=== PATIENT | male | born 1945 | race Caucasian/White ===

== ENCOUNTER 2019-12-27 16:20 | Emergency (ER) | payer MEDICARE, BC ==
[2019-12-27 16:38] VITALS: BP 107/91; PULSE 81
[2019-12-27] MEDS ORDERED: Sodium Chloride 0.9% 10 ML Syringe FLUSH PRN (17:05)
[2019-12-27] MEDS ORDERED: Ondansetron 4 MG/2 ML SDV IVPUSH ONE (17:05)
[2019-12-27] MEDS ORDERED: Dextrose 5%-Lactated Ringers 1,000 ML IV SCH (17:15)
--- NOTE | 2019-12-27 17:49 | EDM.PDOC ---
ED HPI GENERAL MEDICAL PROBLEM - General Chief Complaint: Fever Stated Complaint: [facility] Time Seen by Provider: 12/27/19 16:30 Source of Information: Reports: Patient, RN Notes Reviewed - History of Present Illness INITIAL COMMENTS - FREE TEXT/NARRATIVE: 74 yr old male became ill 2 1/2 days ago with chills, fever, nausea, myalgias, diarrhea that all continues today. No cough, sore throat, nasal don. or dyspnea. Has not been out much in the public but has not been wearing a mask up until the last 2 to 3 days. Hx of prior appendectomy. Generalized Pain Score (Numeric/FACES): 10 - Related Data Allergies Allergy/AdvReac Type Severity Reaction Status Date / Time No Known Allergies Allergy Verified 12/27/19 16:26 Home Meds: Home Meds Aspirin [Adult Low Dose Aspirin EC] 81 mg PO DAILY 12/04/14 [History] Metoclopramide [Reglan] 10 mg PO TID 12/04/14 [History] Metoprolol Tartrate 50 mg PO BID 12/04/14 [History] Pravastatin [Pravachol] 10 mg PO DAILY 12/04/14 [History] Tamsulosin [Flomax] 0.4 mg PO DAILY 12/04/14 [History] Venlafaxine HCl [Venlafaxine HCl ER] 150 mg PO DAILY 12/04/14 [History] amLODIPine [Norvasc] 10 mg PO DAILY 12/04/14 [History] Morphine [MS Contin] 30 mg PO TID 12/27/19 [History] Ondansetron [Zofran ODT] 4 mg PO Q8HR PRN #7 tab.dis 12/27/19 [Rx] Past Medical History HEENT History: Reports: Impaired Vision Cardiovascular History: Reports: Hypertension Respiratory History: Reports: None Other Respiratory History: shortness of breath since Wednesday Gastrointestinal History: Reports: GERD Genitourinary History: Reports: None Musculoskeletal History: Reports: Other (See Below) Other Musculoskeletal History: chronic myofascial pain - hx thoracic compression FX - Bilateral chronic leg weakness. States has been on pain medications for years, for generalized pain from head to toe. Neurological History: Reports: None Other Neuro History: chronic pain patient Psychiatric History: Reports: Depression Endocrine/Metabolic History: Reports: None Hematologic History: Reports: None Immunologic History: Reports: None Oncologic (Cancer) History: Reports: None Dermatologic History: Reports: None - Infectious Disease History Infectious Disease History: Reports: None - Past Surgical History Head Surgeries/Procedures: Reports: None HEENT Surgical History: Reports: Adenoidectomy, Tonsillectomy Male Surgical History: Reports: None Endocrine Surgical History: Reports: None Social & Family History - Family History Family Medical History: Noncontributory - Tobacco Use Smoking Status *Q: Current Every Day Smoker Years of Tobacco use: 50 Packs/Tins Daily: 1 - Caffeine Use Caffeine Use: Reports: Coffee - Recreational Drug Use Recreational Drug Use: No ED ROS GENERAL - Review of Systems Review Of Systems: See Below Constitutional: Reports: Fever, Chills. Denies: Diaphoresis HEENT: Denies: Rhinitis, Throat Pain Respiratory: Denies: Shortness of Breath, Cough Cardiovascular: Denies: Chest Pain Endocrine: Reports: Fatigue GI/Abdominal: Reports: Abdominal Pain, Diarrhea, Nausea. Denies: Vomiting Musculoskeletal: Reports: Other (generalized achiness) Neurological: Reports: Dizziness. Denies: Headache, Trouble Speaking, Difficulty Walking ED EXAM, GI/ABD - Physical Exam Exam: See Below General Appearance: Alert, Mild Distress Head: Atraumatic Neck: Supple Respiratory/Chest: No Respiratory Distress, Lungs Clear, Normal Breath Sounds Cardiovascular: Regular Rate, Rhythm GI/Abdominal Exam: Tender (mild diffuse tenderness) Extremities: Normal Inspection, Normal Range of Motion Neurological: Alert, Oriented, No Motor/Sensory Deficits Course - Vital Signs Last Recorded V/S: Last Vital Signs Temp 99.2 F 12/27/19 16:34 Pulse 81 12/27/19 16:34 Resp 20 12/27/19 16:34 BP 107/91 H 12/27/19 16:34 Pulse Ox 100 12/27/19 16:34 - Orders/Labs/Meds Orders: Active Orders 24 hr Category Date Time Status Peripheral IV Care [RC] . DIRECTED Care 12/27/19 17:06 Active Dextrose 5%-Lactated Ringers 1,000 ml Med 12/27/19 17:15 Active IV ASDIRECTED Sodium Chloride 0.9% [Saline Flush] Med 12/27/19 17:05 Active 10 ml FLUSH ASDIRECTED PRN Peripheral IV Insertion Adult [OM.PC] Stat Oth 12/27/19 17:05 Ordered Medication Orders Dextrose/Lactated Ringer's (Dextrose 5%-Lactated Ringers) 1,000 mls @ 125 mls/hr IV ASDIRECTED BRYANNA Last Admin: 12/27/19 17:19 Dose: 125 mls/hr Documented by: YVES Sodium Chloride (Saline Flush) 10 ml FLUSH ASDIRECTED PRN PRN Reason: Keep Vein Open Last Admin: 12/27/19 17:19 Dose: 10 ml Documented by: YVES Labs: Laboratory Tests 12/27/19 12/27/19 12/27/19 Range/Units 17:15 17:15 17:15 WBC 7.78 (4.23-9.07) K/mm3 RBC 4.08 L (4.63-6.08) M/mm3 Hgb 13.1 L (13.7-17.5) gm/dl Hct 38.5 L (40.1-51.0) % MCV 94.4 H (79.0-92.2) fl MCH 32.1 (25.7-32.2) pg MCHC 34.0 (32.2-35.5) g/dl RDW Std Deviation 45.8 H (35.1-43.9) fL Plt Count 238 (163-337) K/mm3 MPV 9.6 (9.4-12.3) fl Neut % (Auto) 66.6 (34.0-67.9) % Lymph % (Auto) 25.4 (21.8-53.1) % [place] % (Auto) 7.7 (5.3-12.2) % Eos % (Auto) 0.1 L (0.8-7.0) Baso % (Auto) 0.1 (0.1-1.2) % Neut # (Auto) 5.17 (1.78-5.38) K/mm3 Lymph # (Auto) 1.98 (1.32-3.57) K/mm3 [place] # (Auto) 0.60 (0.30-0.82) K/mm3 Eos # (Auto) 0.01 L (0.04-0.54) K/mm3 Baso # (Auto) 0.01 (0.01-0.08) K/mm3 D-Dimer, Quantitative (0.19-0.50) mg/L Sodium 144 (136-145) mEq/L Potassium 3.0 L (3.5-5.1) mEq/L Chloride 107 (98-107) mEq/L Carbon Dioxide 25 (21-32) mEq/L Anion Gap 15.0 (5-15) BUN 27 H (7-18) mg/dL Creatinine 1.1 (0.7-1.3) mg/dL Est Cr Clr Drug Dosing 57.56 mL/min Estimated GFR (MDRD) > 60 (>60) mL/min BUN/Creatinine Ratio 24.5 H (14-18) Glucose 106 (83-115) mg/dL Calcium 8.8 (8.5-10.1) mg/dL Ferritin (26-388) ng/ml Total Bilirubin 0.5 (0.2-1.0) mg/dL AST 61 H (15-37) U/L ALT 115 H (16-63) U/L Alkaline Phosphatase 131 H (46-116) U/L C-Reactive Protein 0.9 (<1.0) mg/dL Total Protein 6.6 (6.4-8.2) g/dl Albumin 3.2 L (3.4-5.0) g/dl Globulin 3.4 gm/dL Albumin/Globulin Ratio 0.9 L (1-2) SARS Virus RNA (PCR) (NEGATIVE) 12/27/19 12/27/19 12/27/19 Range/Units 17:15 17:15 17:20 WBC (4.23-9.07) K/mm3 RBC (4.63-6.08) M/mm3 Hgb (13.7-17.5) gm/dl Hct (40.1-51.0) % MCV (79.0-92.2) fl MCH (25.7-32.2) pg MCHC (32.2-35.5) g/dl RDW Std Deviation (35.1-43.9) fL Plt Count (163-337) K/mm3 MPV (9.4-12.3) fl Neut % (Auto) (34.0-67.9) % Lymph % (Auto) (21.8-53.1) % [place] % (Auto) (5.3-12.2) % Eos % (Auto) (0.8-7.0) Baso % (Auto) (0.1-1.2) % Neut # (Auto) (1.78-5.38) K/mm3 Lymph # (Auto) (1.32-3.57) K/mm3 [place] # (Auto) (0.30-0.82) K/mm3 Eos # (Auto) (0.04-0.54) K/mm3 Baso # (Auto) (0.01-0.08) K/mm3 D-Dimer, Quantitative 0.56 H (0.19-0.50) mg/L Sodium (136-145) mEq/L Potassium (3.5-5.1) mEq/L Chloride (98-107) mEq/L Carbon Dioxide (21-32) mEq/L Anion Gap (5-15) BUN (7-18) mg/dL Creatinine (0.7-1.3) mg/dL Est Cr Clr Drug Dosing mL/min Estimated GFR (MDRD) (>60) mL/min BUN/Creatinine Ratio (14-18) Glucose (83-115) mg/dL Calcium (8.5-10.1) mg/dL Ferritin 161 (26-388) ng/ml Total Bilirubin (0.2-1.0) mg/dL AST (15-37) U/L ALT (16-63) U/L Alkaline Phosphatase (46-116) U/L C-Reactive Protein (<1.0) mg/dL Total Protein (6.4-8.2) g/dl Albumin (3.4-5.0) g/dl Globulin gm/dL Albumin/Globulin Ratio (1-2) SARS Virus RNA (PCR) Negative (NEGATIVE) Meds: Medications Generic Name Dose Route Start Last Admin Trade Name Freq PRN Reason Stop Dose Admin Dextrose/Lactated Ringer's 1,000 mls @ 125 mls/hr 12/27/19 17:15 12/27/19 17:19 Dextrose 5%-Lactated Ringers IV 125 mls/hr ASDIRECTED BRYANNA Administration Sodium Chloride 10 ml 12/27/19 17:05 12/27/19 17:19 Saline Flush FLUSH 10 ml ASDIRECTED PRN Administration Keep Vein Open Discontinued Medications Generic Name Dose Route Start Last Admin Trade Name Freq PRN Reason Stop Dose Admin Ondansetron HCl 4 mg 12/27/19 17:05 12/27/19 17:19 Zofran IVPUSH 12/27/19 17:06 4 mg ONETIME ONE Administration - Re-Assessments/Exams Free Text/Narrative Re-Assessment/Exam: 12/27/19. 12/27/19 20:25. covid screen neg., CXR nl. other labs relatively nl. Feels better after IV fluid and zofran. Discharge instr. as documented. Departure - Departure Time of Disposition: 19:21 Disposition: Home, Self-Care 01 Condition: Fair Clinical Impression: Vomiting, Diarrhea, Abdominal pain - Discharge Information Prescriptions: Ondansetron [Zofran ODT] 4 mg PO Q8HR PRN #7 tab.dis PRN Reason: Nausea/Vomiting Instructions: Nausea and Vomiting, Adult, [id number], Abdominal Pain, Adult, [id number], Diarrhea, Adult, [id number] Referrals: PCP,None [Ordering Only Provider] - Forms: ED Department Discharge Additional Instructions: rest, clear liquids until noon tomorrow, than very careful bland diet as tolerated. Follow up clinic if not much better by Wednesday. Return to ED as needed if symptoms worsening in any way. Sepsis Event Note (ED) - Evaluation Sepsis Screening Result: No Definite Risk - Focused Exam Vital Signs: Vital Signs Temp Pulse Resp BP Pulse Ox 12/27/19 16:34 99.2 F 81 20 107/91 H 100 - My Orders Last 24 Hours: My Active Orders 12/27/19 17:05 Sodium Chloride 0.9% [Saline Flush] 10 ml FLUSH ASDIRECTED PRN Peripheral IV Insertion Adult [OM.PC] Stat 12/27/19 17:06 Peripheral IV Care [RC] . DIRECTED 12/27/19 17:15 Dextrose 5%-Lactated Ringers 1,000 ml IV ASDIRECTED - Assessment/Plan Last 24 Hours: My Active Orders 12/27/19 17:05 Sodium Chloride 0.9% [Saline Flush] 10 ml FLUSH ASDIRECTED PRN Peripheral IV Insertion Adult [OM.PC] Stat 12/27/19 17:06 Peripheral IV Care [RC] . DIRECTED 12/27/19 17:15 Dextrose 5%-Lactated Ringers 1,000 ml IV ASDIRECTED
--- NOTE | 2019-12-27 17:59 | CR ---
Chest: Upright view of the chest was obtained. Comparison: Prior chest x-ray of 09/23/18. Heart size is normal. Tortuous thoracic aorta is seen. Lungs are clear with no acute parenchymal change. Bony structures show nothing acute. Impression: 1. Nothing acute is appreciated on frontal chest x-ray. Diagnostic code #1 Study was dictated in MDT
== END 2019-12-27 19:47 | disposition home or self-care (01) ==
LOC: JD.ED 16:20
DX: R11.2 Nausea with vomiting, unspecified (principal); R19.7 Diarrhea, unspecified; R10.84 Generalized abdominal pain; Z20.828 Contact with and (suspected) exposure to other viral communicable diseases; F17.210 Nicotine dependence, cigarettes, uncomplicated; Z79.82 Long term (current) use of aspirin; Z79.899 Other long term (current) drug therapy
CPT/HCPCS: 36415; 71045; 80053; 82728; 85025; 85379; 86140; 96361; 96374; 99284; J2405; J7121; U0002; 99283

== ENCOUNTER 2021-03-11 07:02 | Day surgery (SDC) | payer MEDICARE, BC ==
--- NOTE | 2021-02-10 07:16 | PCM.PREANE ---
Preanesthetic Assessment - Anesthesia/Transfusion/Family Hx Anesthesia History: Prior Anesthesia Without Reaction Family History of Anesthesia Reaction: No Transfusion History: Prior Transfusion Without Reaction - Review of Systems General: No Symptoms Pulmonary: No Symptoms Cardiovascular: Other (> 4 mets) Gastrointestinal: No Symptoms, Other (denies gerd) Neurological: No Symptoms Other: Reports: None - Physical Assessment NPO Status Date: 02/09/21 NPO Status Time: 21:00 Weight: 64.2 kg ASA Class: 2 Mental Status: Alert & Oriented x3 Dentition: Reports: Normal Dentition, Partial (2 partials, pt states that they are tight) Thyro-Mental Finger Breadths: 3 Mouth Opening Finger Breadths: 3 ROM/Head Extension: Full Lungs: Clear to Auscultation, Normal Respiratory Effort Cardiovascular: Regular Rate, Regular Rhythm - Allergies Allergies/Adverse Reactions: Allergies Allergy/AdvReac Type Severity Reaction Status Date / Time No Known Allergies Allergy Verified 12/27/19 16:26 - Blood Blood Available: No Product(s) Available: None - Anesthesia Plan Pre-Op Medication Ordered: None Beta Yazmin: Metoprolol Med Last Dose Date: 02/10/21 Med Last Dose Time: 04:00 - Acknowledgements Anesthesia Type Planned: Spinal Pt an Appropriate Candidate for the Planned Anesthesia: Yes Alternatives and Risks of Anesthesia Discussed w Pt/Guardian: Yes Pt/Guardian Understands and Agrees with Anesthesia Plan: Yes PreAnesthesia Questionnaire HEENT History: Reports: Impaired Vision Cardiovascular History: Reports: Hypertension Respiratory History: Reports: None Other Respiratory History: shortness of breath since Wednesday Gastrointestinal History: Reports: GERD Genitourinary History: Reports: None Musculoskeletal History: Reports: Other (See Below) Other Musculoskeletal History: chronic myofascial pain - hx thoracic compression FX - Bilateral chronic leg weakness. States has been on pain medications for years, for generalized pain from head to toe. Neurological History: Reports: None Other Neuro History: chronic pain patient Psychiatric History: Reports: Depression Endocrine/Metabolic History: Reports: None Hematologic History: Reports: None Immunologic History: Reports: None Oncologic (Cancer) History: Reports: None Dermatologic History: Reports: None - Infectious Disease History Infectious Disease History: Reports: None - Past Surgical History Head Surgeries/Procedures: Reports: None HEENT Surgical History: Reports: Adenoidectomy, Tonsillectomy Male Surgical History: Reports: None Endocrine Surgical History: Reports: None - HOME MEDS Home Medications: Home Meds Aspirin [Adult Low Dose Aspirin EC] 81 mg PO DAILY 12/04/14 [History] Metoclopramide [Reglan] 10 mg PO TID 12/04/14 [History] Metoprolol Tartrate 50 mg PO BID 12/04/14 [History] Pravastatin [Pravachol] 10 mg PO DAILY 12/04/14 [History] Tamsulosin [Flomax] 0.4 mg PO DAILY 12/04/14 [History] Venlafaxine HCl [Venlafaxine HCl ER] 150 mg PO DAILY 12/04/14 [History] amLODIPine [Norvasc] 10 mg PO DAILY 12/04/14 [History] Morphine [MS Contin] 30 mg PO TID 12/27/19 [History] Ondansetron [Zofran ODT] 4 mg PO Q8HR PRN #7 tab.dis 12/27/19 [Rx] - CURRENT (IN HOUSE) MEDS Current Meds: Current Medications Lactated Ringer's (Ringers, Lactated) 1,000 mls @ 125 mls/hr IV ASDIRECTED BRYANNA Lidocaine/Sodium Bicarbonate (Lidocaine 1%/Sod Bicarbonate In Ns 8.4% 1 Ml Syringe) 0.25 ml IDERM ONETIME PRN PRN Reason: Prior to IV Start Sodium Chloride (Sodium Chloride 0.9% 10 Ml Syringe) 10 ml FLUSH ASDIRECTED PRN PRN Reason: Keep Vein Open
[~2021-03-11 07:02] MED LIST: Lactated Ringers 1,000 ML IV SCH; Lidocaine 1%/Sod Bicarbonate in NS 8.4% 1 ML Syringe IDERM PRN; Sodium Chloride 0.9% 10 ML Syringe FLUSH PRN
--- NOTE | 2021-03-11 07:46 | PCM.PREANE ---
Preanesthetic Assessment - Procedure Proposed Procedure: EGD/Colonoscopy - Anesthesia/Transfusion/Family Hx Anesthesia History: Prior Anesthesia Without Reaction Family History of Anesthesia Reaction: No Transfusion History: No Prior Transfusion(s) - Review of Systems General: No Symptoms Pulmonary: No Symptoms Cardiovascular: No Symptoms Gastrointestinal: Abdominal Pain (10/03) Neurological: No Symptoms Other: Reports: Thyroid Problems - Physical Assessment NPO Status Date: 03/10/21 NPO Status Time: 00:00 Height: 1.73 m Weight: 50.6 kg ASA Class: 3 Mental Status: Alert & Oriented x3 Airway Class: Mallampati = 2 Dentition: Reports: Partial Thyro-Mental Finger Breadths: 2 Mouth Opening Finger Breadths: 2 ROM/Head Extension: Limited/Partial Lungs: Clear to Auscultation, Normal Respiratory Effort Cardiovascular: Regular Rate, Regular Rhythm - Imaging/EKG Impressions: EKG ST [id number] - Allergies Allergies/Adverse Reactions: Allergies Allergy/AdvReac Type Severity Reaction Status Date / Time No Known Allergies Allergy Verified 03/10/21 16:40 - Blood Blood Available: No Product(s) Available: None - Anesthesia Plan Pre-Op Medication Ordered: Beta Yazmin Beta Yazmin: Metoprolol Med Last Dose Date: 03/10/21 Med Last Dose Time: 09:00 - Acknowledgements Anesthesia Type Planned: MAC Pt an Appropriate Candidate for the Planned Anesthesia: Yes Alternatives and Risks of Anesthesia Discussed w Pt/Guardian: Yes Pt/Guardian Understands and Agrees with Anesthesia Plan: Yes PreAnesthesia Questionnaire HEENT History: Reports: Impaired Vision Cardiovascular History: Reports: High Cholesterol, Hypertension, NE Respiratory History: Reports: None Gastrointestinal History: Reports: GERD, Other (See Below) Other Gastrointestinal History: abdominal pain, dehydration, diarrhea, epigastric pain, nausea Genitourinary History: Reports: Renal Calculus, Other (See Below) Other Genitourinary History: decreased testosterone, pelvic pain, UTI, nocturia, kidney stones MARKETING RE[employer] History: Reports: None Musculoskeletal History: Reports: Other (See Below) Other Musculoskeletal History: chronic myofascial pain - hx thoracic compression FX - Bilateral chronic leg weakness. States has been on pain medications for years, for generalized pain from head to toe. Neurological History: Reports: Headaches, Chronic Other Neuro History: chronic pain patient Psychiatric History: Reports: Anxiety, Depression Endocrine/Metabolic History: Reports: Hypothyroidism, Vitamin D Deficiency Hematologic History: Reports: Anemia, Iron Deficiency, Other (See Below) Other Hematologic History: decreased potassium, leukocytosis Immunologic History: Reports: None Oncologic (Cancer) History: Reports: None Dermatologic History: Reports: None - Infectious Disease History Infectious Disease History: Reports: None - Past Surgical History Head Surgeries/Procedures: Reports: None HEENT Surgical History: Reports: Adenoidectomy, Cataract Surgery, Tonsillectomy Cardiovascular Surgical History: Reports: None Respiratory Surgical History: Reports: None GI Surgical History: Reports: None Male Surgical History: Reports: None Endocrine Surgical History: Reports: None Musculoskeletal Surgical History: Reports: None Oncologic Surgical History: Reports: None Dermatological Surgical History: Reports: None - SUBSTANCE USE Tobacco Use Status *Q: Current Every Day Tobacco User Tobacco Use Within Last Twelve Months: Cigarettes Second Hand Smoke Exposure: No Days Per Week of Alcohol Use: 0 Number of Drinks Per Day: 0 Total Drinks Per Week: 0 Recreational Drug Use History: No - HOME MEDS Home Medications: Home Meds Aspirin [Adult Low Dose Aspirin EC] 81 mg PO DAILY 12/04/14 [History] Metoprolol Tartrate 50 mg PO BID 12/04/14 [History] Venlafaxine HCl [Venlafaxine HCl ER] 150 mg PO DAILY 12/04/14 [History] amLODIPine [Norvasc] 10 mg PO DAILY 12/04/14 [History] Morphine [MS Contin] 30 mg PO TID 12/27/19 [History] Levothyroxine Sodium [Levothyroxine] 50 mcg PO DAILY 03/10/21 [History] Multivitamin 1 tab PO DAILY 03/10/21 [History] Potassium Chloride [Klor-Con 10] 10 meq PO DAILY 03/10/21 [History] - CURRENT (IN HOUSE) MEDS Current Meds: Current Medications Lactated Ringer's (Ringers, Lactated) 1,000 mls @ 125 mls/hr IV ASDIRECTED BRYANNA Stop: 03/11/21 23:00 Lidocaine/Sodium Bicarbonate (Lidocaine 1%/Sod Bicarbonate In Ns 8.4% 1 Ml Syringe) 0.25 ml IDERM ONETIME PRN PRN Reason: Prior to IV Start Stop: 03/11/21 18:00 Sodium Chloride (Sodium Chloride 0.9% 10 Ml Syringe) 10 ml FLUSH ASDIRECTED PRN PRN Reason: Keep Vein Open Stop: 03/11/21 18:00 Discontinued Medications Lactated Ringer's (Ringers, Lactated) 1,000 mls @ 125 mls/hr IV ASDIRECTED BRYANNA Lidocaine/Sodium Bicarbonate (Lidocaine 1%/Sod Bicarbonate In Ns 8.4% 1 Ml Syringe) 0.25 ml IDERM ONETIME PRN PRN Reason: Prior to IV Start Sodium Chloride (Sodium Chloride 0.9% 10 Ml Syringe) 10 ml FLUSH ASDIRECTED PRN PRN Reason: Keep Vein Open
[2021-03-11] MEDS ORDERED: Propofol 200 MG/20 ML SDV ONE ×2 (07:57→08:29)
[2021-03-11] MEDS ORDERED: Midazolam 1 MG/ML 2 ML SDV ONE (07:58)
[2021-03-11] MEDS ORDERED: fentaNYL 100 MCG/2 ML SDV ONE (07:58)
[2021-03-11] MEDS ORDERED: Lidocaine 1% 4 ML ONE (08:00)
--- NOTE | 2021-03-11 09:15 | PCM48HPAN ---
Post Anesthesia Note - EVALUATION WITHIN 48HRS OF ANESTHETIC Vital Signs in Normal Range: Yes Patient Participated in Evaluation: Yes Respiratory Function Stable: Yes Airway Patent: Yes Cardiovascular Function Stable: Yes Hydration Status Stable: Yes Pain Control Satisfactory: Yes Nausea and Vomiting Control Satisfactory: Yes Mental Status Recovered: Yes Vital Signs: Last Vital Signs Temp 36.3 C 03/11/21 07:30 Pulse 105 H 03/11/21 07:30 Resp 16 03/11/21 07:30 BP 111/84 03/11/21 07:30 Pulse Ox 97 03/11/21 07:30
--- NOTE | 2021-03-11 11:38 | PCM.PRNOTE ---
- Free Text/Narrative Note: Date: 03/11/2021 Procedure: diagnostic esophagogastroduodenoscopy and colonoscopy History: abdominal pain, weight loss, no prior colon cancer screening Endoscopist: Rogelio Buckley MD Findings: minor mucosal inflammatory change in stomach. Polypoid tissue at ileocecal junction, probably normal tissue. Several hyperplastic appearing rectal polyps. Hypertrophied anal papilla. Detailed Report: The patient was taken to the endoscopy suite and placed in left lateral decubitus position. Timeout was performed and monitored anesthesia care was initiated. A bite-block was placed. The endoscope was inserted in the mouth and advanced to the duodenum. The small bowel mucosa appeared normal. A sample biopsy was obtained with cold forceps. The scope was withdrawn into the stomach. There was a moderate amount of fluid in the stomach and what appeared to be scattered mucosal petechiae. There was no ulceration or severe gross inflammatory change. Biopsies of the antrum and body mucosa were obtained with cold forceps. On retroflexion, no hiatal hernia was appreciated. The Z-line appeared normal and there was no gross inflammatory change of the esophagus. A biopsy of distal esophageal mucosa was obtained. Air was suctioned from the stomach prior to withdrawal of the scope. Next attention was turned to colonoscopy. The anus appeared normal and digital rectal exam was unremarkable. The colonoscope was inserted and advanced to the cecum with ease. The appendiceal orifice and ileocecal junction were visualized. There appeared to be some polypoid mucosal change at the ileocecal junction which was probably normal tissue, but several biopsies with forceps were obtained nonetheless. The scope was slowly withdrawn and mucosal surfaces carefully inspected. Prep was adequate. Within the rectum, several very small benign-appearing polyps with a hyperplastic appearance were noted, and if you were biopsied with cold forceps. On retroflexion in the rectum, hypertrophied anal papilla were noted. 1 of these was rather large and was biopsied with a hot snare. Air was suctioned fro m the distal colon and rectum prior to withdrawal of the scope. The patient tolerated the procedure well.
[2021-03-11 12:40] VITALS: BP 114/78; PULSE 67
== END 2021-03-11 10:06 | disposition home or self-care (01) ==
LOC: JD.SDS 07:02
PROVIDERS: ATTEND Surgery
DX: D12.0 Benign neoplasm of cecum (principal); K31.89 Other diseases of stomach and duodenum; D64.9 Anemia, unspecified; K64.4 Residual hemorrhoidal skin tags; I10 Essential (primary) hypertension; E78.2 Mixed hyperlipidemia; E03.9 Hypothyroidism, unspecified; G47.00 Insomnia, unspecified; E55.9 Vitamin D deficiency, unspecified; F17.210 Nicotine dependence, cigarettes, uncomplicated; Z79.899 Other long term (current) drug therapy; Z79.82 Long term (current) use of aspirin; Z79.890 Hormone replacement therapy; Z90.49 Acquired absence of other specified parts of digestive tract
CPT/HCPCS: 43239; 45380; 45385; 88305; J2250; J2704; J3010; J7120; 00813; 99100